=== PATIENT | female | born 1995 | race Two or more races ===

== ENCOUNTER 2020-03-01 14:53 | Observation (INO) | payer MEDICAID ==
[~2020-03-01] VITALS: Ht 160 cm; Wt 73.9 kg
== END 2020-03-01 17:00 | disposition home or self-care (01) ==
LOC: 8 EST LDRP 14:53
PROVIDERS: ADMIT Obstetrics & Gynecology; ATTEND Obstetrics & Gynecology
DX: O26.893 Other specified pregnancy related conditions, third trimester (principal); Z20.828 Contact with and (suspected) exposure to other viral communicable diseases; O99.89 Other specified diseases and conditions complicating pregnancy, childbirth and the puerperium; M54.9 Dorsalgia, unspecified; R10.30 Lower abdominal pain, unspecified; Z3A.38 38 weeks gestation of pregnancy; Z98.891 History of uterine scar from previous surgery
CPT/HCPCS: G0378; U0003; 59025; 99281

== ENCOUNTER 2020-03-04 05:51 | Inpatient (IN) | payer MEDICAID ==
[~2020-03-04] VITALS: Ht 160 cm; Wt 72.6 kg
[2020-03-04] MEDS ORDERED: DEXT 5%/LR + PITOCIN 20UNITS/L 1,000 ML IV SCH ×2 (06:44→09:14)
[2020-03-04] MEDS ORDERED: LACTATED RINGERS 1,000 ML IV SCH (06:44)
[2020-03-04] MEDS ORDERED: METHYLERGONOVINE MALEATE 0.2 MG/ML IM PRN (06:45)
[2020-03-04] MEDS ORDERED: NALOXONE HCL 0.4 MG/ML 1ML VIAL IM PRN (06:45)
[2020-03-04 07:31] LABS: BASOPHILS % 0.6 % (0.0-2.0); EOSINOPHILS % 1.1 % (0.0-5.0); HEMATOCRIT. 32.6 % (36.0-48.0); HEMOGLOBIN. 10.9 g/dL (12.0-16.0); LYMPHOCYTES % 29.9 % (20.0-50.0); MEAN CORPUSCULAR VOLUME 87.2 fL (81.0-99.0); MEAN PLATELET VOLUME 9.4 fl (7.4-10.4); MONOCYTES % 8.1 % (2.0-8.0); NEUTROPHILS % 60.3 % (40.0-76.0); PLATELET 202 x1000/uL (130-400); RED BLOOD CELL COUNT 3.75 mill/uL (4.2-5.4); RED CELL DISTRIBUTION WIDTH 16.8 % (11.6-14.6)
[2020-03-04 07:38] LABS: CLARITY URINE CLEAR (CLEAR); COLOR URINE YELLOW (YELLOW); KETONES URINE NEGATIVE (NEGATIVE); LEUKOCYTE ESTERASE URINE TRACE (NEGATIVE); NITRITE URINE NEGATIVE (NEGATIVE); OCCULT BLOOD URINE NEGATIVE (NEGATIVE); PROTEIN URINE NEGATIVE (NEGATIVE)
[2020-03-04] MEDS ORDERED: CALC-1042 PO (07:38)
[2020-03-04] MEDS ORDERED: FERR-71 PO (07:38)
[2020-03-04] MEDS ORDERED: PREN1TAB78 PO (07:38)
[2020-03-04 07:40] LABS: INR 0.9; PARTIAL THROMBOPLASTIN TIME 24.7 sec (23.4-31.0)
[2020-03-04 07:51] LABS: *AMPHETAMINES SCREEN URINE NEGATIVE (NEGATIVE); *BARBITURATES SCREEN URINE NEGATIVE (NEGATIVE); *BENZODIAZEPINES SCREEN URINE NEGATIVE (NEGATIVE); CANNABINOID URINE SCREEN NEGATIVE (NEGATIVE); OPIATES URINE SCREEN NEGATIVE (NEGATIVE); PHENCYCLIDINE URINE SCREEN NEGATIVE (NEGATIVE)
[2020-03-04 07:52] LABS: *COCAINE SCREEN URINE NEGATIVE (NEGATIVE); METHADONE URINE SCREEN NEGATIVE (NEGATIVE)
[2020-03-04] MEDS ORDERED: MORPHINE SULFATE/PF 1MG/ML 10ML AMP ONE (07:53)
[2020-03-04] MEDS ORDERED: FENTANYL CITRATE/PF 50MCG/ML 2ML VIAL ONE (07:53)
[2020-03-04] MEDS ORDERED: CEFAZOLIN SODIUM 1000MG/VIAL ONE (07:59)
[2020-03-04] MEDS ORDERED: SODIUM CHLORIDE 0.9% 10ML VIAL ONE (07:59)
[2020-03-04] MEDS ORDERED: OXYTOCIN 10 UNITS/ML 1ML ONE (07:59)
[2020-03-04] MEDS ORDERED: HYDROMORPHONE HCL/PF 2MG/ML CPJ IV PRN (08:30)
[2020-03-04] MEDS ORDERED: DIPHENHYDRAMINE 50MG/ML VIAL IV PRN (08:30)
[2020-03-04] MEDS ORDERED: ONDANSETRON HCL 4MG/2ML INJ IV PRN ×2 (08:30→09:15)
[2020-03-04] MEDS ORDERED: MEPERIDINE HCL/PF 25MG/ML CPJ IV PRN (08:30)
[2020-03-04] MEDS ORDERED: LABETALOL 5MG/ML SYR 20 MG/4 ML SYRINGE IV PRN (08:30)
[2020-03-04] MEDS ORDERED: BUTORPHANOL TARTRATE 2 MG/ML VIAL IM PRN (08:30)
[2020-03-04] MEDS ORDERED: KETOROLAC 30MG/ML VIAL IV PRN (08:30)
[2020-03-04] MEDS ORDERED: BISACODYL 10MG SUPP PR PRN (09:15)
[2020-03-04] MEDS ORDERED: IBUPROFEN 400MG TABLET PO PRN (09:15)
[2020-03-04] MEDS ORDERED: DIPHENHYDRAMINE 25MG CAPSULE PO PRN (09:15)
[2020-03-04] MEDS ORDERED: LANOLIN OINT 7GM TUBE TOP PRN (09:15)
[2020-03-04] MEDS ORDERED: ACETAMINOPHEN WITH CODEINE 300/30MG TABLET PO PRN (09:15)
[2020-03-04] MEDS ORDERED: HEMORRHOIDAL SUPP PR PRN (09:15)
[2020-03-04] MEDS ORDERED: DEXT 5%/LACTATED RINGERS 1,000 ML IV SCH (09:30)
[2020-03-04 11:04] LABS: HEPATITIS B SURFACE ANTIGEN NEGATIVE
[2020-03-04 15:30] VITALS: BP 104/64
[2020-03-04 16:00] VITALS: BP 95/62
[2020-03-04] MEDS ORDERED: PNEUMOCOCCAL 23-VAL P-SAC VAC 0.5 ML IM ONE (18:00)
[2020-03-04 19:49] VITALS: BP 102/65
[2020-03-04 23:49] VITALS: BP 97/65
[2020-03-05] MEDS: SIMETHICONE 80MG TABLET CHEW PO SCH ×2 (00:20→21:46)
[2020-03-05] MEDS: DOCUSATE SODIUM 100MG CAPSULE PO SCH ×2 (00:20→21:44)
[2020-03-05 04:00] VITALS: BP 102/60
[2020-03-05 08:02] LABS: BASOPHILS % 0.5 % (0.0-2.0); EOSINOPHILS % 0.5 % (0.0-5.0); HEMATOCRIT. 31.3 % (36.0-48.0); HEMOGLOBIN. 10.7 g/dL (12.0-16.0); LYMPHOCYTES % 14.6 % (20.0-50.0); MEAN CORPUSCULAR HEMOGLOBIN 29.6 pg (28.0-32.0); MEAN CORPUSCULAR VOLUME 86.3 fL (81.0-99.0); MEAN PLATELET VOLUME 9.4 fl (7.4-10.4); MONOCYTES % 8.1 % (2.0-8.0); NEUTROPHILS % 76.3 % (40.0-76.0); PLATELET 179 x1000/uL (130-400); RED BLOOD CELL COUNT 3.62 mill/uL (4.2-5.4); RED CELL DISTRIBUTION WIDTH 16.7 % (11.6-14.6)
[2020-03-05 08:30] VITALS: BP 98/58
[2020-03-05] MEDS ORDERED: PRENATAL VIT/FE FUMARATE/FA TABLET PO SCH (09:00)
[2020-03-05] MEDS ORDERED: CALCIUM CARBONATE 1250MG TABLET (500MG ELEMENTAL CALCIUM) PO SCH (09:00)
[2020-03-05] MEDS ORDERED: FERROUS SULFATE 325MG TABLET PO SCH (09:00)
[2020-03-05] MEDS: FERROUS SULFATE 325MG TABLET PO SCH (10:45)
[2020-03-05] MEDS: IBUPROFEN 800MG TABLET PO PRN ×2 (10:46→21:44)
[2020-03-05 15:35] VITALS: BP 93/50
[2020-03-05 20:00] VITALS: BP 117/66
[2020-03-06] VITALS: BP 98/60
[2020-03-06 04:00] VITALS: BP 106/68
[2020-03-06 07:45] VITALS: BP 97/62
[2020-03-06] MEDS: FERROUS SULFATE 325MG TABLET PO SCH (08:29)
[2020-03-06] MEDS: IBUPROFEN 800MG TABLET PO PRN (08:29)
== END 2020-03-06 11:00 | disposition home or self-care (01) | DRG 540 ==
LOC: OBSVTOIN 05:51 → 8 EST LDRP 05:51 → 8EST 20:46
PROVIDERS: ADMIT Obstetrics & Gynecology; ATTEND Obstetrics & Gynecology
PROC: 10D00Z1 Extraction of Products of Conception, Low, Open Approach (ICD-10-PCS; principal; 2020-03-04)
PROC: 3E0R3BZ Introduction of Anesthetic Agent into Spinal Canal, Percutaneous Approach (ICD-10-PCS; 2020-03-04)
DX: O34.211 Maternal care for low transverse scar from previous cesarean delivery (principal); O32.1XX0 Maternal care for breech presentation, not applicable or unspecified; Z37.0 Single live birth; Z3A.39 39 weeks gestation of pregnancy; Z83.3 Family history of diabetes mellitus; Z91.018 Allergy to other foods
CPT/HCPCS: 36415; 80305; 81003; 85025; 86592; 86703; 86762; 86850; 86900; 87340; 88307; 90732; J0690; J1885; J2274; J2590; J3010; J7120; J7121